=== PATIENT | female | born 1935 | race Caucasian/White ===

== ENCOUNTER 2018-02-16 12:21 | Inpatient (IN) ==
[2018-02-16] MEDS ORDERED: Sod Chloride 0.9% Inj 1,000 ML IV.SIG ONE (12:34)
--- NOTE | 2018-02-16 12:44 | ED ---
HPI General Chief Complaint: Dizziness Stated Complaint: Poss Stroke Symptoms Time Seen by Provider: 02/16/18 12:34 Source: patient Mode of arrival: ambulatory Limitations: no limitations History of Present Illness HPI Narrative: 83-year-old female with PMH of HTN, DM presents to the ED for evaluation of sudden onset dizziness approximately 45 minutes ago while driving her to a doctor's appointment. Patient states she pulled over and had her daughter drive. She states that when she was attempting to get out of the car she had difficulties with walking. She endorses associated blurred vision which resolves when closing one eye. She denies headache, chest pain, palpitations, shortness of breath, abdominal pain, nausea, vomiting, dysuria, weakness of the extremities, facial droop, difficulties with word finding. Patient states that she feels like her symptoms may be due to lack of sleep. She states that her recently had surgery and she has been "up all night with him." The patient's daughter arrived and state that the patient has a history of vertigo, took a meclizine before arrival. She also gave mother a chocolate "in case her blood sugar was low." complaint: dizziness Onset (ago): minute(s) Time: 12:00 Timing: sudden onset Description: lightheadedness and off-balance History of similar episodes: No History of trauma: No Severity: moderate Relieving factors: nothing Exacerbating factors: nothing Associated symptoms: vision changes (blurred with both eyes, resolves with single eye testing) Related Data Allergies Allergy/AdvReac Type Severity Reaction Status Date / Time egg AdvReac Intermediate ABLE TO Unverified 02/11/17 15:16 EAT EGG BEATERS-REG EGGS CAUSE NAUSEA No Known Allergies Uncoded 03/04/10 11:57 Review of Systems ROS: all other systems reviewed are negative [facility] Social History Social History Second Hand Smoke Exposure: No Smoking Status: Never smoker How Often Do You Have a Drink Containing Alcohol: Never Recent Travel in [place] within the Last 8 Weeks: No Recent Out of Country Travel within the Last 8 Weeks: No Immunization History Tetanus Immunization: <5 Years Exam Narrative Exam Narrative: GENERAL: Petite, obese withe female in NAD. SKIN: Focused skin assessment warm/dry. HEAD: Atraumatic. Normocephalic. EYES: Pupils equal and round. No scleral icterus. No injection or drainage. ENT: No nasal bleeding or discharge. Mucous membranes pink and moist. NECK: Trachea midline. No JVD. CARDIOVASCULAR: Regular rate and rhythm. No murmur appreciated. RESPIRATORY: No accessory muscle use. Clear to auscultation. Breath sounds equal bilaterally. GASTROINTESTINAL: Abdomen soft, non-tender, nondistended. Hepatic and splenic margins not palpable. MUSCULOSKELETAL: No obvious deformities. No clubbing. No cyanosis. No edema. NEUROLOGICAL: Awake and alert. CV II-XII grossly intact. Motor grossly within normal limits. No ataxia. Normal speech. PSYCHIATRIC: Appropriate mood and affect; insight and judgment normal. Course Initial Documented Vital Signs Pulse Rate 83 02/16/18 12:27 Respiratory Rate 17 02/16/18 12:27 Blood Pressure 221/86 H 02/16/18 12:27 Pulse Oximetry 97 02/16/18 12:27 Last Documented Vital Signs Temperature 98.8 F 02/16/18 12:30 Pulse Rate 73 02/16/18 14:01 Respiratory Rate 17 02/16/18 14:01 Blood Pressure 202/83 H 02/16/18 14:01 Pulse Oximetry 98 02/16/18 14:01 Medical Decision Making MDM Narrative Medical decision making narrative: 83-year-old female with PMH of HTN, DM presents to the ED for evaluation of sudden onset dizziness with accompanying blurred vision. Onset while driving approximately 45 minutes before arrival. Patient treated with a dose of meclizine with no improvement of symptoms. Vitals reviewed. BP 221/86 on arrival. No focal neuro deficits noted on exam. Patient was administered 1 liter normal saline, 50 mg of hydralazine p.o. EKG rate 81, sinus rhythm, WV interval 189, QRS 94, QTc 399 ms. Normal axis. Old Q waves in V3/V4, [address] No acute [address] changes. Reviewed by Dr. Crook. Cardiac enzymes negative 1. No concerning abnormalities of the CBC, CMP, coags. UA with evidence of UTI. Patient was administered [address] brain: no acute findings. I discussed the findings with the patient and her family. The patient endorses history of chronic urinary incontinence and states "I have been having some pain with urination but I thought this was normal for me." On recheck blurred vision when using both eyes, improved by closing one eye is unresolved. Plan to admit for hypertensive urgency. Patient and her family are agreeable to this plan. I spoke with who agrees to accept the patient to the medicine service. Please see medicine notes for disposition. Medical Screen Exam Complete: Yes Emergency Medical Condition: Yes Differential Diagnosis Differential Diagnosis: HTN versus hypertensive urgency versus ICH versus TIA versus other Lab Data Result diagrams: 02/16/18 12:40 02/16/18 12:40 Lab Results 02/16/18 02/16/18 02/16/18 Range/Units 11:50 12:40 12:40 WBC 9.3 (4.0-11.0) th/mm3 RBC 4.55 (4.00-5.30) mil/mm3 Hgb 13.1 (11.6-15.3) gm/dL Hct 38.7 (35.0-46.0) % MCV 85.0 (80.0-100.0) fL MCH 28.8 (27.0-34.0) pg MCHC 33.8 (32.0-36.0) % RDW 13.5 (11.6-17.2) % Plt Count 269 (150-450) th/mm3 MPV 8.7 (7.0-11.0) fL Neut % (Auto) 64.0 (16.0-70.0) % Lymph % (Auto) 27.0 (9.0-44.0) % [place]onder[place] % (Auto) 6.3 (0.0-8.0) % Eos % (Auto) 2.0 (0.0-4.0) % Baso % (Auto) 0.7 (0.0-2.0) % Neut # (Auto) 5.9 (1.8-7.7) th/mm3 Lymph # (Auto) 2.5 (1.0-4.8) th/mm3 [place] # (Auto) 0.6 (0.0-0.9) th/mm3 Eos # (Auto) 0.2 (0.0-0.4) th/mm3 Baso # (Auto) 0.1 (0.0-0.2) th/mm3 WBC Differential . Differential Comment Auto diff final PT 10.8 (9.8-11.6) sec INR 1.1 Ratio Sodium (136-145) meq/L Potassium (3.5-5.1) meq/L Chloride (98-107) meq/L Carbon Dioxide (21.0-32.0) meq/L Anion Gap (5-15) meq/L BUN (7-18) mg/dL Creatinine (0.50-1.00) mg/dL Estimated GFR (>89) mL/min Random Glucose (74-106) mg/dL Calcium (8.5-10.1) mg/dL Troponin I (0.02-0.05) ng/mL Urine Color Yellow (Yellw/Straw) Urine Clarity Hazy H (Clear) Urine pH 6.0 (5.0-8.5) Ur Specific Sears 1.004 (1.002-1.035) Urine Protein Negative (Neg-Trace) mg/dL Urine Glucose (UA) Negative (Negative) mg/dL Urine Ketones Negative (Negative) mg/dL Urine Occult Blood Small H (Negative) Urine Nitrate Negative (Negative) Urine Bilirubin Negative (Negative) Urine Urobilinogen Less than 2 (Less than 2) mg/dL Ur Leukocyte Esterase Large H (Negative) Urine RBC 1 (0-3) /hpf Urine WBC 18 H (0-5) /hpf Ur Squamous Epith Cells <1 (0-5) /hpf Urine Bacteria Few H (None) /hpf Micro UA Comment Culture indicated Urine Culture Comments Culture indicated 02/16/18 Range/Units 12:40 WBC (4.0-11.0) th/mm3 RBC (4.00-5.30) mil/mm3 Hgb (11.6-15.3) gm/dL Hct (35.0-46.0) % MCV (80.0-100.0) fL MCH (27.0-34.0) pg MCHC (32.0-36.0) % RDW (11.6-17.2) % Plt Count (150-450) th/mm3 MPV (7.0-11.0) fL Neut % (Auto) (16.0-70.0) % Lymph % (Auto) (9.0-44.0) % Pondera % (Auto) (0.0-8.0) % Eos % (Auto) (0.0-4.0) % Baso % (Auto) (0.0-2.0) % Neut # (Auto) (1.8-7.7) th/mm3 Lymph # (Auto) (1.0-4.8) th/mm3 [place] # (Auto) (0.0-0.9) th/mm3 Eos # (Auto) (0.0-0.4) th/mm3 Baso # (Auto) (0.0-0.2) th/mm3 WBC Differential Differential Comment PT (9.8-11.6) sec INR Ratio Sodium 138 (136-145) meq/L Potassium 4.1 (3.5-5.1) meq/L Chloride 101 (98-107) meq/L Carbon Dioxide 27.2 (21.0-32.0) meq/L Anion Gap 10 (5-15) meq/L BUN 15 (7-18) mg/dL Creatinine 0.81 (0.50-1.00) mg/dL Estimated GFR 68 L (>89) mL/min Random Glucose 216 H (74-106) mg/dL Calcium 9.0 (8.5-10.1) mg/dL Troponin I Less than 0.02 L (0.02-0.05) ng/mL Urine Color (Yellw/Straw) Urine Clarity (Clear) Urine pH (5.0-8.5) Ur Specific Sears (1.002-1.035) Urine Protein (Neg-Trace) mg/dL Urine Glucose (UA) (Negative) mg/dL Urine Ketones (Negative) mg/dL Urine Occult Blood (Negative) Urine Nitrate (Negative) Urine Bilirubin (Negative) Urine Urobilinogen (Less than 2) mg/dL Ur Leukocyte Esterase (Negative) Urine RBC (0-3) /hpf Urine WBC (0-5) /hpf Ur Squamous Epith Cells (0-5) /hpf Urine Bacteria (None) /hpf Micro UA Comment Urine Culture Comments Imaging Data Radiologist's impression: Head CT 02/16/18 12:34 CONCLUSION: No acute intracranial abnormality is identified. . Discharge Plan Discharge Disposition Patient Disposition: 30 Still Patient Discharge Details Diagnosis: Hypertensive urgency, Urinary tract infection Physicians Team ED Provider: Evans Crook ED Midlevel Provider: Chaya Coronado Primary Care Provider: Josh Ardon Attending Provider: Alfredo Ballard Discharge Interventions Interventions: Vital Signs Last Done: 02/16/18 12:30 Status ED Status: Admitted Patient
[2018-02-16 13:03] LABS: Baso # (Auto) 0.1 th/mm3 (0.0-0.2); Baso % (Auto) 0.7 % (0.0-2.0); Eos # (Auto) 0.2 th/mm3 (0.0-0.4); Hematocrit 38.7 % (35.0-46.0); Hemoglobin 13.1 gm/dL (11.6-15.3); Lymph # (Auto) 2.5 th/mm3 (1.0-4.8); Mean Corpuscular HGB Conc 33.8 % (32.0-36.0); Mean Corpuscular Hemoglobin 28.8 pg (27.0-34.0); Mean Platelet Volume 8.7 fL (7.0-11.0); Mono # (Auto) 0.6 th/mm3 (0.0-0.9); Mono % (Auto) 6.3 % (0.0-8.0); Neut # (Auto) 5.9 th/mm3 (1.8-7.7); Platelet Count 269 th/mm3 (150-450); Red Blood Count 4.55 mil/mm3 (4.00-5.30); Red Cell Distribution Width 13.5 % (11.6-17.2); White Blood Count 9.3 th/mm3 (4.0-11.0)
[2018-02-16 13:08] LABS: Bacteria,Urine Few /hpf; Bilirubin,Urine Negative (Negative); Clarity,Urine Hazy (Clear); Color,Urine Yellow (Yellw/Straw); Glucose,Urine (UA) Negative (Negative); Leukocyte Esterase,Urine Large (Negative); Nitrite,Urine Negative (Negative); Specific Gravity,Urine 1.004 (1.002-1.035); Squamous Epithelial Cell,Urine <1 /hpf (0-5)
[2018-02-16 13:11] LABS: INR 1.1 Ratio; Prothrombin Time 10.8 sec (9.8-11.6)
[2018-02-16 13:18] LABS: Anion Gap 10 meq/L (5-15); Blood Urea Nitrogen 15 mg/dL (7-18); Carbon Dioxide 27.2 meq/L (21.0-32.0); Chloride 101 meq/L (98-107); Glomerular Filtration Rate 68 mL/min (>89); Glucose,Random 216 mg/dL (74-106); Potassium 4.1 meq/L (3.5-5.1); Sodium 138 meq/L (136-145)
--- NOTE | 2018-02-16 13:58 | CT ---
EXAM DATE: 02/16/2018 1:46 PM EDT AGE/SEX: 83 years / Female INDICATIONS: Dizziness today. CLINICAL DATA: This is the patient's initial encounter. Patient reports that signs and symptoms have been present for 1 day and indicates a pain score of 0/10. MEDICAL/SURGICAL HISTORY: None. None. RADIATION DOSE: 36.84 CTDI (mGy) COMPARISON: No prior exams available for comparison. TECHNIQUE: CT of the head without contrast. Using automated exposure control and adjustment of the mA and/or kV according to patient size, radiation dose was kept as low as reasonably achievable to ob tain optimal diagnostic quality images. DICOM format image data is available electronically for revi ew and comparison. FINDINGS: Cerebrum: There is mild generalized atrophy and ventricles are normal given the degree of atrophy. M ild periventricular white matter change is present. No midline shift, mass lesion, hemorrhage or acu te infarction. No extraaxial fluid collections are seen. Posterior Fossa: The cerebellum and brainstem demonstrate no acute abnormality. The 4th ventricle is midline. The cerebellopontine angle is within normal limits. Extracranial: The visualized sinuses are clear. Skull: The calvaria is intact. No skull fracture. CONCLUSION: No acute intracranial abnormality is identified. . Electronically signed by: Klever Root MD 02/16/2018 1:57 PM EDT
[2018-02-16] MEDS ORDERED: hydrALAZINE 50 MG Tablet PO ONE (14:15)
[2018-02-16] MEDS ORDERED: Bisacodyl 10 MG Supp RECTAL PRN (14:59)
[2018-02-16] MEDS ORDERED: Acetaminophen 325 MG Tablet PO PRN (15:01)
[2018-02-16] MEDS ORDERED: Dextrose 50% in Water 50 ML Vial IV.PUSH PRN (15:10)
[2018-02-16] MEDS: Heparin - SQ 10,000 UNITS/ML Vial SQ SCH (16:20)
--- NOTE | 2018-02-16 16:54 | US ---
EXAM DATE: 02/16/2018 4:14 PM EDT AGE/SEX: 83 years / Female INDICATIONS: Syncope. CLINICAL DATA: This is the patient's initial encounter. Patient reports that signs and symptoms have been present for 1 day and indicates a pain score of 0/10. MEDICAL/SURGICAL HISTORY: . Syncope. None. COMPARISON: No prior exams available for comparison. VELOCITY PARAMETERS: ICA/CCA Ratio: Right 1.3 , Left 1.8 ICA: Right 101 cm/sec, Left 171 cm/sec CCA: Right 77.6 cm/sec, Left 95.1 cm/sec ECA: Right 63.5 cm/sec, Left 170 cm/sec Vertebral: Right 167 cm/sec antegrade, Left 76.3 cm/sec antegrade FINDINGS: Right Carotid: No significant plaque is visualized.The waveforms are within normal limits. Left Carotid: No significant plaque is visualized. The waveforms are within normal limits. Other: None. CONCLUSION: 1. Right Internal Carotid Artery: No significant stenosis or atherosclerotic plaque is visualized. 2. Left Internal Carotid Artery: No significant atherosclerotic disease or stenosis is identified. H owever, velocity measurement suggests between 50-69% stenosis. Electronically signed by: Klever Root MD 02/16/2018 4:53 PM EDT
[2018-02-16] MEDS ORDERED: LORazepam 0.5 MG Tablet PO ONE (17:04)
--- NOTE | 2018-02-16 17:04 | P.HP ---
History of Present Illness Service: Hospitalist Primary Care Physician: Josh Ardon MD Chief Complaint: Double vision History of Present Illness: This is an 83-year-old female with a past medical history significant for hypertension, hypothyroidism and diabetes who presents to [facility] ED with complaints of sudden onset of "dizziness" which patient describes as double /blurry vision. Patient states she has episodes of "vertigo" which she gets 2 times a year and reports that today's symptoms were similar. Patient states that she woke up in her normal state of health this morning but later in the day when she got in the car to drive she experienced a sudden onset of blurry vision. When she got out the car to let her daughter drive, she had difficulty walking. She denies any associated headache, palpitations, nausea, vomiting, chest pain, shortness of breath or abdominal pain. Daughter who was with her at the time states that the her left eyelid was droopy. She denies any slurred speech, difficulties with word finding or associated weakness. She does state that she had some numbness in the left arm but reports that she gets this from time to time with certain positioning of her arm or head and has a history of cervical stenosis. Patient took one of her meclizine but did not get any benefit. Her daughter was also concerned that maybe she was having hypoglycemic episode and gave her a small Snickers which also did not help. In the ED, her BP was dated 221/86. CT of the head was obtained which showed no acute intracranial abnormality. The white count was within normal limits and hemoglobin hematocrit were normal. Chemistry panel reveals sodium 138, potassium 4.1, creatinine 0.81, glucose 216. She had a troponin level 0.02. EKG revealed normal sinus rhythm and no acute ST changes. UA was not indicative of UTI with large leukocytes, 18 white blood cells and few bacteria and she was given a dose of Ceftriaxone in the ED. Inpatient Certification: I certify that the inpatient services were ordered in accordance with Medicare regulations governing the order. This includes certification that hospital inpatient services are reasonable and necessary and in the case of services not specified as inpatient-only under 42 CFR 419.22(n), that they are appropriately provided as inpatient services in accordance to with the 2-midnight benchmark under 43 CFR 412.3(e) Estimated Total Length of Stay (Days): 3 Plans for Post Hospital Care: Not yet determined Review of Systems All other systems reviewed negative except as stated in HPI PMFSH - History History Provided By: Patient, Family Member - Medical History Medical History: Medical History (Last Updated 02/16/18 @ 16:49 by Tegan Carrera) Cervical stenosis of spine Diabetes mellitus Hypertension Prolapsed bladder Vertigo - Surgical History Surgical History: Surgical History (Last Updated 02/16/18 @ 16:49 by Tegan Carrera) H/O tubal ligation History of cholecystectomy History of tonsillectomy - Family History Family History: Family History (Last Updated 02/16/18 @ 16:49 by Tegan Carrera) Other Diabetes mellitus - Tobacco History Second Hand Smoke Exposure: No Tobacco Use In Past 30 Days: No Smoking Status: Never smoker - Alcohol History How Often Do You Have a Drink Containing Alcohol: Never - Substance Use History Substance History: No History of Abuse - Travel History Recent Travel in the [place] Within the Last 8 Weeks: No Recent Travel Out of the Country Within the Last 8 Weeks: No - Immunization History Tetanus Immunization: <5 Years Medications and Allergies Active Medications: Active Medications Acetaminophen (Tylenol) 650 mg PO Q4H PRN PRN Reason: Temp > 100.4 Al Hydroxide/Mg Hydroxide (Milk Of Magnesia Liq) 30 ml PO Q12H PRN PRN Reason: Mild Constipation Aspirin (Aspirin Chew) 81 mg PO DAILY [facility] Last Admin: 02/16/18 16:20 Dose: 81 mg Bisacodyl (Dulcolax Supp) 10 mg RECTAL DAILY PRN PRN Reason: SEVERE CONSITIPATION Clonidine HCl (Catapres) 0.1 mg PO Q6H PRN PRN Reason: HYPERTENSION Dextrose (D50w Vial) 50 ml IV.PUSH UNSCH PRN PRN Reason: per Hypoglycemic Protocol Glucagon (Glucagon Inj) 1 mg OTHER UNSCH PRN PRN Reason: per Hypoglycemic Protocol Heparin Sodium (Porcine) (Heparin Inj) 5,000 units SQ Q12H [facility] Last Admin: 02/16/18 16:20 Dose: 5,000 units Hydralazine HCl (Apresoline) 50 mg PO TID JANAK Ceftriaxone Sodium 1,000 mg/ (Sodium Chloride) 100 mls @ 200 mls/hr IV.SIG Q24H JANAK Lactulose (Lactulose Liq) 30 ml PO DAILY PRN PRN Reason: SEVERE CONSITIPATION Ondansetron HCl (Zofran Inj) 4 mg IV.PUSH Q6H PRN PRN Reason: NAUSEA OR VOMITING Pravastatin Sodium (Pravachol) 40 mg PO HS JANAK Senna/Docusate Sodium (Luciana-Colace) 1 tab PO BID JANAK Sennosides (Senokot) 17.2 mg PO Q12H PRN PRN Reason: Moderate Constipation Sodium Chloride (Ns Flush) 2 ml IV.FLUSH PRN PRN PRN Reason: FLUSH AFTER USING IV ACCESS Allergies Allergy/AdvReac Type Severity Reaction Status Date / Time egg AdvReac Intermediate ABLE TO Unverified 02/11/17 15:16 EAT EGG BEATERS-REG EGGS CAUSE NAUSEA No Known Allergies Uncoded 03/04/10 11:57 Home Medications Medication Instructions Recorded Confirmed Type amlodipine 5 mg PO DAILY 02/16/18 02/16/18 History aspirin [Abigail Chewable Aspirin] 81 mg PO DAILY 02/16/18 02/16/18 History calcium carbonate [Calcium 600] 600 mg PO BID 02/16/18 02/16/18 History coenzyme Q10 [Co Q-10] 10 mg PO TID 02/16/18 02/16/18 History folic acid 0.8 mg PO DAILY 02/16/18 02/16/18 History garlic 500 mg PO DAILY 02/16/18 02/16/18 History glipizide 5 mg PO DAILY 02/16/18 02/16/18 History levothyroxine 150 mcg PO DAILY 02/16/18 02/16/18 History linagliptin [Tradjenta] 5 mg PO DAILY 02/16/18 02/16/18 History losartan 100 mg PO DAILY 02/16/18 02/16/18 History omega 2-ltr-zns-fish oil [Fish Oil] 1,000 mg PO DAILY 02/16/18 02/16/18 History omeprazole 20 mg PO DAILY 02/16/18 02/16/18 History vit D3-folic [id number]-[id number] 2,000 unit PO DAILY 02/16/18 02/16/18 History [Folgard] Exam Vital signs: Vital Signs 02/16/18 12:27 02/16/18 12:30 02/16/18 14:01 Temperature 98.8 F Pulse Rate 83 95 H 73 Respiratory Rate 17 17 17 Blood Pressure 221/86 H 186/81 H 202/83 H Pulse Oximetry 97 98 98 02/16/18 15:33 02/16/18 16:21 Temperature Pulse Rate 87 89 Respiratory Rate 17 17 Blood Pressure 182/81 H 183/74 H Pulse Oximetry 97 Intake & Output 02/15/18 02/16/18 02/16/18 18:59 06:59 18:59 Weight 74.843 kg Narrative: GENERAL: WDWN obese female, INAD. Awake and alert. Daughter is at the bedside. SKIN: Warm and dry. No rash. HEAD: Atraumatic. Normocephalic. EYES: Pupils equal and round. No scleral icterus. No injection or drainage. + Slight left eyelid ptosis. ENT: No nasal bleeding or discharge. Mucous membranes pink and moist. NECK: Trachea midline. CARDIOVASCULAR: Regular rate and rhythm. RESPIRATORY: No accessory muscle use. Clear to auscultation. Breath sounds equal bilaterally. GASTROINTESTINAL: Abdomen soft, non-tender, nondistended. Hepatic and splenic margins not palpable. MUSCULOSKELETAL: Extremities without clubbing, cyanosis, or edema. No obvious deformities. NEUROLOGICAL: Awake and alert. No obvious cranial nerve deficits. Motor grossly within normal limits. Normal speech. PSYCHIATRIC: Appropriate mood and affect; insight and judgment normal. Results - Labs CBC & Chem 7: 02/16/18 12:40 02/16/18 12:40 Labs: Laboratory Results - last 24 hr 02/16/18 02/16/18 02/16/18 11:50 12:40 12:40 WBC 9.3 RBC 4.55 Hgb 13.1 Hct 38.7 MCV 85.0 MCH 28.8 MCHC 33.8 RDW 13.5 Plt Count 269 MPV 8.7 Neut % (Auto) 64.0 Lymph % (Auto) 27.0 Yancey % (Auto) 6.3 Eos % (Auto) 2.0 Baso % (Auto) 0.7 Neut # (Auto) 5.9 Lymph # (Auto) 2.5 Yancey # (Auto) 0.6 Eos # (Auto) 0.2 Baso # (Auto) 0.1 WBC Differential . Differential Comment Auto diff final PT 10.8 INR 1.1 Sodium Potassium Chloride Carbon Dioxide Anion Gap BUN Creatinine Estimated GFR Random Glucose Calcium Troponin I Urine Color Yellow Urine Clarity Hazy H Urine pH 6.0 Ur Specific Shelby 1.004 Urine Protein Negative Urine Glucose (UA) Negative Urine Ketones Negative Urine Occult Blood Small H Urine Nitrate Negative Urine Bilirubin Negative Urine Urobilinogen Less than 2 Ur Leukocyte Esterase Large H Urine RBC 1 Urine WBC 18 H Ur Squamous Epith Cells <1 Urine Bacteria Few H Micro UA Comment Culture indicated Urine Culture Comments Culture indicated 02/16/18 12:40 WBC RBC Hgb Hct MCV MCH MCHC RDW Plt Count MPV Neut % (Auto) Lymph % (Auto) Yancey % (Auto) Eos % (Auto) Baso % (Auto) Neut # (Auto) Lymph # (Auto) Yancey # (Auto) Eos # (Auto) Baso # (Auto) WBC Differential Differential Comment PT INR Sodium 138 Potassium 4.1 Chloride 101 Carbon Dioxide 27.2 Anion Gap 10 BUN 15 Creatinine 0.81 Estimated GFR 68 L Random Glucose 216 H Calcium 9.0 Troponin I Less than 0.02 L Urine Color Urine Clarity Urine pH Ur Specific Shelby Urine Protein Urine Glucose (UA) Urine Ketones Urine Occult Blood Urine Nitrate Urine Bilirubin Urine Urobilinogen Ur Leukocyte Esterase Urine RBC Urine WBC Ur Squamous Epith Cells Urine Bacteria Micro UA Comment Urine Culture Comments - Imaging Impressions Head CT 02/16/18 12:34 CONCLUSION: No acute intracranial abnormality is identified. . Caprini VTE Risk Assessment Caprini VTE Risk Assessment: Moderate/High Risk (score >= 2) Caprini Risk Assessment Model: Point Value = 1 Point Value = 2 Point Value = 3 Point Value = 5 Age 41-60 Minor surgery BMI > 25 kg/m2 Swollen legs Varicose veins or History of unexplained or recurrent spontaneous Oral contraceptives or hormone replacement Sepsis (< 1 month) Serious lung disease, including pneumonia (< 1 month) Abnormal pulmonary function Acute myocardial infarction Congestive heart failure (< 1 month) History of inflammatory bowel disease Medical patient at bed rest Age 61-74 Arthroscopic surgery Major open surgery (> 45 min) Laparoscopic surgery (> 45 min) Malignancy Confined to bed (> 72 hours) Immobilizing plaster cast Central venous access Age >= 75 History of VTE Family history of VTE Factor V Leiden Prothrombin [id number] Lupus anticoagulant Anticardiolipin antibodies Elevated serum homocysteine Heparin-induced thrombocytopenia Other congenital or acquired thrombophilia Stroke (< 1 month) Elective arthroplasty Hip, pelvis, or leg fracture Acute spinal cord injury (< 1 month) Prophylaxis Regimen: Total Risk Factor Score Risk Level Prophylaxis Regimen 0-1 Low Early ambulation 2 Moderate Order ONE of the following: *Sequential Compression Device (SCD) *Heparin 5000 units SQ BID 3-4 Higher Order ONE of the following medications: *Heparin 5000 units SQ TID *Enoxaparin/Lovenox 40 mg SQ daily (WT < 150 kg, CrCl > 30 mL/min) *Enoxaparin/Lovenox 30 mg SQ daily (WT < 150 kg, CrCl > 10-29 mL/min) *Enoxaparin/Lovenox 30 mg SQ BID (WT < 150 kg, CrCl > 30 mL/min) AND/OR *Sequential Compression Device (SCD) 5 or more Highest Order ONE of the following medications: *Heparin 5000 units SQ TID (Preferred with Epidurals) *Enoxaparin/Lovenox 40 mg SQ daily (WT < 150 kg, CrCl > 30 mL/min) *Enoxaparin/Lovenox 30 mg SQ daily (WT < 150 kg, CrCl > 10-29 mL/min) *Enoxaparin/Lovenox 30 mg SQ BID (WT < 150 kg, CrCl > 30 mL/min) AND *Sequential Compression Device (SCD) Assessment and Plan - Plan 83-year-old female with a past medical history significant for hypertension, hypothyroidism and diabetes who presents to [facility] ED with complaints of sudden onset of "dizziness" which patient describes as double/blurry vision. Sudden onset of blurry/double vision and gait instability R/O CVA -Consult Neurology, appreciate assistance -Consult stroke navigator -Neuro checks -Monitor on cardiac telemetry -Serial cardiac enzymes -Obtain 2D echocardiogram -MRI and MRI of the brain ordered -Carotid Doppler studies ordered -ASA daily -Obtain lipid profile and hemoglobin A1c -PT/OT eval/tx Hypertensive urgency, likely contributing to above BP 221/86 -start on Hydralazine 50mg TID -resume patients home antihypertensive meds -clonidine prn with parameters -monitor BP and adjust treatment accordingly UTI -Patient given IV ceftriaxone in the ED, continue -Follow-up on urine culture results Diabetes -Obtain hemoglobin A1c -Accu-Cheks and insulin sliding scale -Hold home antidiabetic medications for now Hypothyroidism -Obtain TSH level -Resume home dose of levothyroxine DVT prophylaxis -Heparin sq Code Status: FULL Discussed Condition With: patient, daughter, Dr. Ballard, nursing staff
[2018-02-16 18:31] LABS: Creatine Kinase 68 U/L (26-192)
--- NOTE | 2018-02-16 19:12 | MR ---
EXAM DATE: 02/16/2018 6:48 PM EDT AGE/SEX: 83 years / Female INDICATIONS: CVA. Vertigo. CLINICAL DATA: This is the patient's initial encounter. Patient reports that signs and symptoms have been present for 2 days and indicates a pain score of 0/10. MEDICAL/SURGICAL HISTORY: Diabetes mellitus type II. Hypertension. Tonsillectomy. Tubal ligat ion. Cholecystectomy. COMPARISON: . TECHNIQUE: Multiplanar, multisequence examination of the brain was performed without contrast. FINDINGS: Cerebrum: The ventricles are normal for age. No evidence of midline shift, mass lesion, hemorrhage or acute infarction. No extraaxial fluid collections are seen. The pituitary gland and suprasellar cistern are normal in configuration. White Matter: No significant signal abnormalities are seen in the white matter. Posterior Fossa: The cerebellum and brainstem are intact. The 4th ventricle is midline. The cerebel lopontine angle is unremarkable. The cerebellar tonsils are normal in position. Diffusion Imaging: No focal areas of restricted diffusion are seen. No evidence of acute infarction . Extracranial: The visualized portions of the orbits and paranasal sinuses are unremarkable. CONCLUSION: 1. Negative noncontrast MRI of the brain. Electronically signed by: Dhaval Madrid MD 02/16/2018 7:11 PM EDT
--- NOTE | 2018-02-16 19:13 | MR ---
EXAM DATE: 02/16/2018 6:57 PM EDT AGE/SEX: 83 years / Female INDICATIONS: CVA. Vertigo. CLINICAL DATA: This is the patient's initial encounter. Patient reports that signs and symptoms have been present for 1 day and indicates a pain score of 0/10. MEDICAL/SURGICAL HISTORY: Hypertension. Diabetes mellitus type II. Cholecystectomy. Tonsillec divine. Tubal ligation. COMPARISON: [facility] [place], MR HEAD W/O CONTRAST, 02/16/2018. . TECHNIQUE: 3D [id number] MRA was performed. Source images, multiplanar STS MIP, and 3D volum e MIP reconstructions were reviewed. FINDINGS: There is excellent visualization of the major intracranial arteries out to the second-order branch ve ssels. There is no evidence for aneurysm, vessel truncation or stenosis, and no evidence for vascula r malformation. Flow seen in the anterior communicating artery and in the right PCOM. CONCLUSION: 1. Negative MRA of the [place]. Electronically signed by: Dhaval Madrid MD 02/16/2018 7:12 PM EDT
[2018-02-16] MEDS: Senna/Docusate Sodium 8.6/50 MG Tablet PO SCH (21:20)
[2018-02-16] MEDS: hydrALAZINE 50 MG Tablet PO SCH (21:23)
[2018-02-16 22:39] LABS: Creatine Kinase 115 U/L (26-192)
[2018-02-16] MEDS: Insulin NovoLOG Aspart Correctional Sugar Inj SQ SCH (23:32)
[2018-02-17] MEDS: Heparin - SQ 10,000 UNITS/ML Vial SQ SCH ×2 (04:02→17:50)
[2018-02-17] MEDS: Levothyroxine 150 MCG Tablet PO SCH (05:32)
[2018-02-17 07:44] LABS: Baso # (Auto) 0.1 th/mm3 (0.0-0.2); Baso % (Auto) 0.9 % (0.0-2.0); Eos # (Auto) 0.2 th/mm3 (0.0-0.4); Eos % (Auto) 2.8 % (0.0-4.0); Hematocrit 37.3 % (35.0-46.0); Hemoglobin 12.5 gm/dL (11.6-15.3); Lymph # (Auto) 2.4 th/mm3 (1.0-4.8); Lymph % (Auto) 27.6 % (9.0-44.0); Mean Corpuscular HGB Conc 33.5 % (32.0-36.0); Mean Corpuscular Hemoglobin 28.8 pg (27.0-34.0); Mean Corpuscular Volume 85.9 fL (80.0-100.0); Mean Platelet Volume 8.6 fL (7.0-11.0); Mono # (Auto) 0.6 th/mm3 (0.0-0.9); Mono % (Auto) 6.5 % (0.0-8.0); Neut # (Auto) 5.3 th/mm3 (1.8-7.7); Neut % (Auto) 62.2 % (16.0-70.0); Platelet Count 278 th/mm3 (150-450); Red Blood Count 4.34 mil/mm3 (4.00-5.30); Red Cell Distribution Width 13.4 % (11.6-17.2); White Blood Count 8.6 th/mm3 (4.0-11.0)
[2018-02-17 08:04] LABS: Alanine Aminotransferase 26 U/L (10-53); Albumin 3.4 g/dL (3.4-5.0); Anion Gap 10 meq/L (5-15); Aspartate Aminotransferase 19 U/L (15-37); Blood Urea Nitrogen 14 mg/dL (7-18); Calcium 8.4 mg/dL (8.5-10.1); Carbon Dioxide 25.2 meq/L (21.0-32.0); Chloride 105 meq/L (98-107); Cholesterol 230 mg/dL (120-200); Glomerular Filtration Rate 75 mL/min (>89); Glucose,Random 196 mg/dL (74-106); Potassium 3.9 meq/L (3.5-5.1); Sodium 140 meq/L (136-145)
[2018-02-17 08:13] LABS: Alkaline Phosphatase 106 U/L (45-117); Chol/HDL Ratio 5.54 Ratio; Free T4 (Free Thyroxine) 1.12 ng/dL (0.76-1.46); HDL Cholesterol 41.5 mg/dL (40.0-60.0); LDL Cholesterol,Calculated 129 mg/dL (0-99); Phosphorus 3.3 mg/dL (2.5-4.9); Total Protein 7.2 g/dL (6.4-8.2); Triglycerides 296 mg/dL (42-150)
[2018-02-17] MEDS ORDERED: amLODIPine 5 MG Tablet PO SCH (09:00)
[2018-02-17] MEDS ORDERED: LEVOTHYROXINE 150 MCG PO SCH (09:00)
[2018-02-17] MEDS: Senna/Docusate Sodium 8.6/50 MG Tablet PO SCH ×2 (09:34→20:20)
[2018-02-17] MEDS: Insulin NovoLOG Aspart Correctional Sugar Inj SQ SCH ×4 (09:34→20:25)
[2018-02-17] MEDS: hydrALAZINE 50 MG Tablet PO SCH (09:34)
[2018-02-17] MEDS: Pantoprazole Sodium 20 MG DR Tablet PO SCH (09:34)
--- NOTE | 2018-02-17 09:39 | P.CONNEU ---
History of Present Illness Service: Neurology Primary Care Provider: Josh Ardon MD Chief Complaint: Double vision History of Present Illness: 83-year-old female admitted for acute onset of dizziness. Had similar episodes occur in the past averages 1-2/year. Neurology consulted for vision changes. Began having dizziness when she is driving and noticed things moving side to side in her visual field. No headache no focal weakness. Had this type of dizziness before feels better now. Takes aspirin daily. She also has had numbness in her left arm Review of Systems All other systems reviewed negative except as stated in [facility] - History History Provided By: Patient, Family Member - Medical History Medical History: Medical History (Last Reviewed 02/17/18 @ 13:32 by Shaila Leone) Cervical stenosis of spine Diabetes mellitus Hypertension Prolapsed bladder Vertigo - Surgical History Surgical History: Surgical History (Last Reviewed 02/17/18 @ 13:32 by Shaila Leone) H/O tubal ligation History of cholecystectomy History of tonsillectomy - Family History Family History: Family History (Last Updated 02/16/18 @ 16:49 by Tegan Carrera) Other Diabetes mellitus - Tobacco History Second Hand Smoke Exposure: No Tobacco Use In Past 30 Days: No Smoking Status: Never smoker - Alcohol History How Often Do You Have a Drink Containing Alcohol: Never - Substance Use History Substance History: No History of Abuse - Travel History Recent Travel in the [place] Within the Last 8 Weeks: No Recent Travel Out of the Country Within the Last 8 Weeks: No - Immunization History Tetanus Immunization: <5 Years Medications and Allergies Active Medications: Active Medications Acetaminophen (Tylenol) 650 mg PO Q4H PRN PRN Reason: Temp > 100.4 Al Hydroxide/Mg Hydroxide (Milk Of [place] Liq) 30 ml PO Q12H PRN PRN Reason: Mild Constipation Amlodipine Besylate (Norvasc) 5 mg PO DAILY JANAK Aspirin (Aspirin Chew) 81 mg PO DAILY JANAK Last Admin: 02/16/18 16:20 Dose: 81 mg Bisacodyl (Dulcolax Supp) 10 mg RECTAL DAILY PRN PRN Reason: SEVERE CONSITIPATION Clonidine HCl (Catapres) 0.1 mg PO Q6H PRN PRN Reason: HYPERTENSION Dextrose (D50w Vial) 50 ml IV.PUSH UNSCH PRN PRN Reason: per Hypoglycemic Protocol Glucagon (Glucagon Inj) 1 mg OTHER UNSCH PRN PRN Reason: per Hypoglycemic Protocol Heparin Sodium (Porcine) (Heparin Inj) 5,000 units SQ Q12H [facility] Last Admin: 02/17/18 04:02 Dose: 5,000 units Hydralazine HCl (Apresoline) 50 mg PO TID [facility] Last Admin: 02/16/18 21:23 Dose: 50 mg Ceftriaxone Sodium 1,000 mg/ (Sodium Chloride) 100 mls @ 200 mls/hr IV.SIG Q24H [facility] Insulin Aspart (Novolog Insulin Correctional Sugar Inj) 0 unit SQ ACHS [facility]; Protocol Last Admin: 02/16/18 23:32 Dose: 5 unit Lactulose (Lactulose Liq) 30 ml PO DAILY PRN PRN Reason: SEVERE CONSITIPATION Levothyroxine Sodium (Synthroid) 150 mcg PO DAILY@0600 [facility] Last Admin: 02/17/18 05:32 Dose: 150 mcg Losartan Potassium (Cozaar) 100 mg PO DAILY [facility] Ondansetron HCl (Zofran Inj) 4 mg IV.PUSH Q6H PRN PRN Reason: NAUSEA OR VOMITING Pantoprazole Sodium (Protonix) 20 mg PO DAILY [facility] Pravastatin Sodium (Pravachol) 40 mg PO HS [facility] Last Admin: 02/16/18 21:23 Dose: 40 mg Senna/Docusate Sodium (Luciana-Colace) 1 tab PO BID [facility] Last Admin: 02/16/18 21:20 Dose: Not Given Sennosides (Senokot) 17.2 mg PO Q12H PRN PRN Reason: Moderate Constipation Sodium Chloride (Ns Flush) 2 ml IV.FLUSH PRN PRN PRN Reason: FLUSH AFTER USING IV ACCESS Allergies Allergy/AdvReac Type Severity Reaction Status Date / Time egg AdvReac Intermediate ABLE TO Unverified 02/11/17 15:16 EAT EGG BEATERS-REG EGGS CAUSE NAUSEA No Known Allergies Uncoded 03/04/10 11:57 Home Medications Medication Instructions Recorded Confirmed Type amlodipine 5 mg PO DAILY 02/16/18 02/16/18 History aspirin [Abigail Chewable Aspirin] 81 mg PO DAILY 02/16/18 02/16/18 History calcium carbonate [Calcium 600] 600 mg PO BID 02/16/18 02/16/18 History coenzyme Q10 [Co Q-10] 10 mg PO TID 02/16/18 02/16/18 History folic acid 0.8 mg PO DAILY 02/16/18 02/16/18 History garlic 500 mg PO DAILY 02/16/18 02/16/18 History glipizide 5 mg PO DAILY 02/16/18 02/16/18 History levothyroxine 150 mcg PO DAILY 02/16/18 02/16/18 History linagliptin [Tradjenta] 5 mg PO DAILY 02/16/18 02/16/18 History losartan 100 mg PO DAILY 02/16/18 02/16/18 History omega [id number] oil [Fish Oil] 1,000 mg PO DAILY 02/16/18 02/16/18 History omeprazole 20 mg PO DAILY 02/16/18 02/16/18 History vit D3-folic [id number] 2,000 unit PO DAILY 02/16/18 02/16/18 History [Folgard] Exam Vital signs: Vital Signs 02/16/18 12:27 02/16/18 12:30 02/16/18 14:01 Temperature 98.8 F Pulse Rate 83 95 H 73 Respiratory Rate 17 17 17 Blood Pressure 221/86 H 186/81 H 202/83 H Pulse Oximetry 97 98 98 02/16/18 15:10 02/16/18 15:33 02/16/18 16:21 Temperature Pulse Rate 79 87 89 Respiratory Rate 17 17 Blood Pressure 182/81 H 183/74 H Pulse Oximetry 97 02/16/18 18:15 02/16/18 20:00 02/17/18 00:00 Temperature 97.7 F 97.7 F Pulse Rate 78 71 77 Respiratory Rate 17 18 18 Blood Pressure 175/79 H 182/76 H 124/57 L Pulse Oximetry 98 96 94 L 02/17/18 04:00 Temperature 97.6 F Pulse Rate 71 Respiratory Rate 18 Blood Pressure 171/79 H Pulse Oximetry 96 Intake & Output 02/16/18 02/17/18 02/17/18 18:59 06:59 18:59 Intake Total 120 / 120 Balance 120 / 120 Weight 74.843 kg 83.1 kg Intake: Oral 120 / 120 Other: # Incontinent Voids 5 Date of Last Bowel Movement 02/16/18 # Bowel Movements 0 Weight On Admission 81.1 kg Narrative: GENERAL: in NAD. SKIN: Focused skin assessment warm/dry. HEAD: Atraumatic. Normocephalic. EYES: Pupils equal and round. No scleral icterus. No injection or drainage. ENT: No nasal bleeding or discharge. Mucous membranes pink and moist. NECK: Trachea midline. No JVD. CARDIOVASCULAR: Regular rate and rhythm. RESPIRATORY: No accessory muscle use. GASTROINTESTINAL: Abdomen soft, non-tender, nondistended. MUSCULOSKELETAL: No obvious deformities. No clubbing. No cyanosis. No edema. NEUROLOGICAL: Awake and alert. CV II-XII grossly intact. Head there is test positive on the right however patient is limited mobility at the neck due to arthritis thereby Phylicia-Hallpike not perform neither Tiffany. Slight nystagmus right upgaze. Motor grossly within normal limits. No ataxia. Normal speech. PSYCHIATRIC: Appropriate mood and affect; insight and judgment normal. - Constitutional no acute distress - Routine HEENT Exam Head: Present: normocephalic Results - Labs CBC & Chem 7: 02/17/18 07:30 02/17/18 07:30 Labs: Laboratory Results - last 24 hr 02/16/18 02/16/18 02/16/18 11:50 12:40 12:40 WBC 9.3 RBC 4.55 Hgb 13.1 Hct 38.7 MCV 85.0 MCH 28.8 MCHC 33.8 RDW 13.5 Plt Count 269 MPV 8.7 Neut % (Auto) 64.0 Lymph % (Auto) 27.0 [place] % (Auto) 6.3 Eos % (Auto) 2.0 Baso % (Auto) 0.7 Neut # (Auto) 5.9 Lymph # (Auto) 2.5 [place] # (Auto) 0.6 Eos # (Auto) 0.2 Baso # (Auto) 0.1 WBC Differential . Differential Comment Auto diff final PT 10.8 INR 1.1 Sodium Potassium Chloride Carbon Dioxide Anion Gap BUN Creatinine Estimated GFR POC Glucose Random Glucose Calcium Phosphorus Magnesium Total Bilirubin AST ALT Alkaline Phosphatase Total Creatine Kinase Troponin I Total Protein Albumin Triglycerides Cholesterol LDL Cholesterol, Calc HDL Cholesterol Cholesterol/HDL Ratio TSH Free T4 Urine Color Yellow Urine Clarity Hazy H Urine pH 6.0 Ur Specific [place] 1.004 Urine Protein Negative Urine Glucose (UA) Negative Urine Ketones Negative Urine Occult Blood Small H Urine Nitrate Negative Urine Bilirubin Negative Urine Urobilinogen Less than 2 Ur Leukocyte Esterase Large H Urine RBC 1 Urine WBC 18 H Ur Squamous Epith Cells <1 Urine Bacteria Few H Micro UA Comment Culture indicated Urine Culture Comments Culture indicated 02/16/18 02/16/18 02/16/18 12:40 17:35 21:28 WBC RBC Hgb Hct MCV MCH MCHC RDW Plt Count MPV Neut % (Auto) Lymph % (Auto) [place] % (Auto) Eos % (Auto) Baso % (Auto) Neut # (Auto) Lymph # (Auto) [place] # (Auto) Eos # (Auto) Baso # (Auto) WBC Differential Differential Comment PT INR Sodium 138 Potassium 4.1 Chloride 101 Carbon Dioxide 27.2 Anion Gap 10 BUN 15 Creatinine 0.81 Estimated GFR 68 L POC Glucose Random Glucose 216 H Calcium 9.0 Phosphorus Magnesium Total Bilirubin AST ALT Alkaline Phosphatase Total Creatine Kinase 68 115 Troponin I Less than 0.02 L Less than 0.02 L Less than 0.02 L Total Protein Albumin Triglycerides Cholesterol LDL Cholesterol, Calc HDL Cholesterol Cholesterol/HDL Ratio TSH Free T4 Urine Color Urine Clarity Urine pH Ur Specific [place] Urine Protein Urine Glucose (UA) Urine Ketones Urine Occult Blood Urine Nitrate Urine Bilirubin Urine Urobilinogen Ur Leukocyte Esterase Urine RBC Urine WBC Ur Squamous Epith Cells Urine Bacteria Micro UA Comment Urine Culture Comments 02/16/18 02/17/18 02/17/18 22:56 07:30 07:30 WBC 8.6 RBC 4.34 Hgb 12.5 Hct 37.3 MCV 85.9 MCH 28.8 MCHC 33.5 RDW 13.4 Plt Count 278 MPV 8.6 Neut % (Auto) 62.2 Lymph % (Auto) 27.6 [place] % (Auto) 6.5 Eos % (Auto) 2.8 Baso % (Auto) 0.9 Neut # (Auto) 5.3 Lymph # (Auto) 2.4 [place] # (Auto) 0.6 Eos # (Auto) 0.2 Baso # (Auto) 0.1 WBC Differential . Differential Comment Auto diff final PT INR Sodium 140 Potassium 3.9 Chloride 105 Carbon Dioxide 25.2 Anion Gap 10 BUN 14 Creatinine 0.74 Estimated GFR 75 L POC Glucose 299 H Random Glucose 196 H Calcium 8.4 L Phosphorus 3.3 Magnesium 2.0 Total Bilirubin 0.3 AST 19 ALT 26 Alkaline Phosphatase 106 Total Creatine Kinase Troponin I Total Protein 7.2 Albumin 3.4 Triglycerides 296 H Cholesterol 230 H LDL Cholesterol, Calc 129 H HDL Cholesterol 41.5 Cholesterol/HDL Ratio 5.54 TSH 5.030 H Free T4 1.12 Urine Color Urine Clarity Urine pH Ur Specific [place] Urine Protein Urine Glucose (UA) Urine Ketones Urine Occult Blood Urine Nitrate Urine Bilirubin Urine Urobilinogen Ur Leukocyte Esterase Urine RBC Urine WBC Ur Squamous Epith Cells Urine Bacteria Micro UA Comment Urine Culture Comments 02/17/18 08:57 WBC RBC Hgb Hct MCV MCH MCHC RDW Plt Count MPV Neut % (Auto) Lymph % (Auto) [place] % (Auto) Eos % (Auto) Baso % (Auto) Neut # (Auto) Lymph # (Auto) [place] # (Auto) Eos # (Auto) Baso # (Auto) WBC Differential Differential Comment PT INR Sodium Potassium Chloride Carbon Dioxide Anion Gap BUN Creatinine Estimated GFR POC Glucose 296 H Random Glucose Calcium Phosphorus Magnesium Total Bilirubin AST ALT Alkaline Phosphatase Total Creatine Kinase Troponin I Total Protein Albumin Triglycerides Cholesterol LDL Cholesterol, Calc HDL Cholesterol Cholesterol/HDL Ratio TSH Free T4 Urine Color Urine Clarity Urine pH Ur Specific [place] Urine Protein Urine Glucose (UA) Urine Ketones Urine Occult Blood Urine Nitrate Urine Bilirubin Urine Urobilinogen Ur Leukocyte Esterase Urine RBC Urine WBC Ur Squamous Epith Cells Urine Bacteria Micro UA Comment Urine Culture Comments - Imaging Impressions Head MRI 02/16/18 00:00 CONCLUSION: 1. Negative noncontrast MRI of the brain. Head MRA 02/16/18 00:00 CONCLUSION: 1. Negative MRA of the [place]. Head CT 02/16/18 12:34 CONCLUSION: No acute intracranial abnormality is identified. . Carotid Doppler Study 02/16/18 15:07 CONCLUSION: 1. Right Internal Carotid Artery: No significant stenosis or atherosclerotic plaque is visualized. 2. Left Internal Carotid Artery: No significant atherosclerotic disease or stenosis is identified. However, velocity measurement suggests between 50-69% stenosis. 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 MRA of the brain normal. Carotid ultrasound showing less than 60% stenosis likely not relevant to her symptoms Recommendations Vestibular therapy Blood pressure control PT eval We will change her from aspirin to Plavix at present Serial carotid imaging LDL goal less than 100 Discussed with the patient and her daughters Discussed with medical Disease DC planning follow-up in the outpatient setting (4) Urinary tract infection Qualifiers: Urinary tract infection type: site unspecified Hematuria presence: without hematuria Qualified Code(s): N39.0 - Urinary tract infection, site not specified
--- NOTE | 2018-02-17 11:35 | P.PN ---
Subjective Interval history: sitting up in chair, denies dizziness, no vision changes, alert and oriented x 3. No cp, no sob, no headaches. Daughter at [facility]. Anxious to go home. BP reviewed , has been elevated, up to 190s. Per daughter, doesn't eat very healthy, a lot of salty food Physical Exam Vital signs: Vital Signs 02/16/18 12:27 02/16/18 12:30 02/16/18 14:01 Temperature 98.8 F Pulse Rate 83 95 H 73 Respiratory Rate 17 17 17 Blood Pressure 221/86 H 186/81 H 202/83 H Pulse Oximetry 97 98 98 02/16/18 15:10 02/16/18 15:33 02/16/18 16:21 Temperature Pulse Rate 79 87 89 Respiratory Rate 17 17 Blood Pressure 182/81 H 183/74 H Pulse Oximetry 97 02/16/18 18:15 02/16/18 20:00 02/17/18 00:00 Temperature 97.7 F 97.7 F Pulse Rate 78 71 77 Respiratory Rate 17 18 18 Blood Pressure 175/79 H 182/76 H 124/57 L Pulse Oximetry 98 96 94 L 02/17/18 04:00 02/17/18 08:00 Temperature 97.6 F 98.2 F Pulse Rate 71 85 Respiratory Rate 18 16 Blood Pressure 171/79 H 193/84 H Pulse Oximetry 96 95 Intake & Output 02/16/18 02/17/18 02/17/18 18:59 06:59 18:59 Intake Total 120 / 120 Balance 120 / 120 Weight 74.843 kg 83.1 kg Intake: Oral 120 / 120 Other: # Incontinent Voids 5 Date of Last Bowel Movement 02/16/18 # Bowel Movements 0 Weight On Admission 81.1 kg Narrative: GENERAL: Well-nourished, well-developed patient in no apparent distress. SKIN: Warm and dry. HEAD: Atraumatic. Normocephalic. EYES: Pupils equal and round. No scleral icterus. No injection or drainage. ENT: No nasal bleeding or discharge. Mucous membranes pink and moist. NECK: Trachea midline. No JVD. CARDIOVASCULAR: Regular rate and rhythm. RESPIRATORY: No accessory muscle use. Clear to auscultation. Breath sounds equal bilaterally. GASTROINTESTINAL: Abdomen soft, non-tender, nondistended. Hepatic and splenic margins not palpable. MUSCULOSKELETAL: Extremities without clubbing, cyanosis, trace pretibial edema. Bilateral 2+ pedal pulses. No obvious deformities. NEUROLOGICAL: Awake and alert x3. No obvious cranial nerve deficits. Motor grossly within normal limits. Five out of 5 muscle strength in the arms and legs. Normal speech. PSYCHIATRIC: Appropriate mood and affect; insight and judgment normal. Results - Labs CBC & Chem 7: 02/17/18 07:30 02/17/18 07:30 Laboratory Results - last 24 hr 02/16/18 02/16/18 02/16/18 11:50 12:40 12:40 WBC 9.3 RBC 4.55 Hgb 13.1 Hct 38.7 MCV 85.0 MCH 28.8 MCHC 33.8 RDW 13.5 Plt Count 269 MPV 8.7 Neut % (Auto) 64.0 Lymph % (Auto) 27.0 [place] % (Auto) 6.3 Eos % (Auto) 2.0 Baso % (Auto) 0.7 Neut # (Auto) 5.9 Lymph # (Auto) 2.5 Trinity # (Auto) 0.6 Eos # (Auto) 0.2 Baso # (Auto) 0.1 WBC Differential . Differential Comment Auto diff final PT 10.8 INR 1.1 Sodium Potassium Chloride Carbon Dioxide Anion Gap BUN Creatinine Estimated GFR POC Glucose Random Glucose Calcium Phosphorus Magnesium Total Bilirubin AST ALT Alkaline Phosphatase Total Creatine Kinase Troponin I Total Protein Albumin Triglycerides Cholesterol LDL Cholesterol, Calc HDL Cholesterol Cholesterol/HDL Ratio TSH Free T4 Urine Color Yellow Urine Clarity Hazy H Urine pH 6.0 Ur Specific [place] 1.004 Urine Protein Negative Urine Glucose (UA) Negative Urine Ketones Negative Urine Occult Blood Small H Urine Nitrate Negative Urine Bilirubin Negative Urine Urobilinogen Less than 2 Ur Leukocyte Esterase Large H Urine RBC 1 Urine WBC 18 H Ur Squamous Epith Cells <1 Urine Bacteria Few H Micro UA Comment Culture indicated Urine Culture Comments Culture indicated 02/16/18 02/16/18 02/16/18 12:40 17:35 21:28 WBC RBC Hgb Hct MCV MCH MCHC RDW Plt Count MPV Neut % (Auto) Lymph % (Auto) Trinity % (Auto) Eos % (Auto) Baso % (Auto) Neut # (Auto) Lymph # (Auto) [place] # (Auto) Eos # (Auto) Baso # (Auto) WBC Differential Differential Comment PT INR Sodium 138 Potassium 4.1 Chloride 101 Carbon Dioxide 27.2 Anion Gap 10 BUN 15 Creatinine 0.81 Estimated GFR 68 L POC Glucose Random Glucose 216 H Calcium 9.0 Phosphorus Magnesium Total Bilirubin AST ALT Alkaline Phosphatase Total Creatine Kinase 68 115 Troponin I Less than 0.02 L Less than 0.02 L Less than 0.02 L Total Protein Albumin Triglycerides Cholesterol LDL Cholesterol, Calc HDL Cholesterol Cholesterol/HDL Ratio TSH Free T4 Urine Color Urine Clarity Urine pH Ur Specific [place] Urine Protein Urine Glucose (UA) Urine Ketones Urine Occult Blood Urine Nitrate Urine Bilirubin Urine Urobilinogen Ur Leukocyte Esterase Urine RBC Urine WBC Ur Squamous Epith Cells Urine Bacteria Micro UA Comment Urine Culture Comments 02/16/18 02/17/18 02/17/18 22:56 07:30 07:30 WBC 8.6 RBC 4.34 Hgb 12.5 Hct 37.3 MCV 85.9 MCH 28.8 MCHC 33.5 RDW 13.4 Plt Count 278 MPV 8.6 Neut % (Auto) 62.2 Lymph % (Auto) 27.6 Trinity % (Auto) 6.5 Eos % (Auto) 2.8 Baso % (Auto) 0.9 Neut # (Auto) 5.3 Lymph # (Auto) 2.4 Trinity # (Auto) 0.6 Eos # (Auto) 0.2 Baso # (Auto) 0.1 WBC Differential . Differential Comment Auto diff final PT INR Sodium 140 Potassium 3.9 Chloride 105 Carbon Dioxide 25.2 Anion Gap 10 BUN 14 Creatinine 0.74 Estimated GFR 75 L POC Glucose 299 H Random Glucose 196 H Calcium 8.4 L Phosphorus 3.3 Magnesium 2.0 Total Bilirubin 0.3 AST 19 ALT 26 Alkaline Phosphatase 106 Total Creatine Kinase Troponin I Total Protein 7.2 Albumin 3.4 Triglycerides 296 H Cholesterol 230 H LDL Cholesterol, Calc 129 H HDL Cholesterol 41.5 Cholesterol/HDL Ratio 5.54 TSH 5.030 H Free T4 1.12 Urine Color Urine Clarity Urine pH Ur Specific [place] Urine Protein Urine Glucose (UA) Urine Ketones Urine Occult Blood Urine Nitrate Urine Bilirubin Urine Urobilinogen Ur Leukocyte Esterase Urine RBC Urine WBC Ur Squamous Epith Cells Urine Bacteria Micro UA Comment Urine Culture Comments 02/17/18 08:57 WBC RBC Hgb Hct MCV MCH MCHC RDW Plt Count MPV Neut % (Auto) Lymph % (Auto) Trinity % (Auto) Eos % (Auto) Baso % (Auto) Neut # (Auto) Lymph # (Auto) Trinity # (Auto) Eos # (Auto) Baso # (Auto) WBC Differential Differential Comment PT INR Sodium Potassium Chloride Carbon Dioxide Anion Gap BUN Creatinine Estimated GFR POC Glucose 296 H Random Glucose Calcium Phosphorus Magnesium Total Bilirubin AST ALT Alkaline Phosphatase Total Creatine Kinase Troponin I Total Protein Albumin Triglycerides Cholesterol LDL Cholesterol, Calc HDL Cholesterol Cholesterol/HDL Ratio TSH Free T4 Urine Color Urine Clarity Urine pH Ur Specific [place] Urine Protein Urine Glucose (UA) Urine Ketones Urine Occult Blood Urine Nitrate Urine Bilirubin Urine Urobilinogen Ur Leukocyte Esterase Urine RBC Urine WBC Ur Squamous Epith Cells Urine Bacteria Micro UA Comment Urine Culture Comments - Imaging Impressions Head MRI 02/16/18 00:00 CONCLUSION: 1. Negative noncontrast MRI of the brain. Head MRA 02/16/18 00:00 CONCLUSION: 1. Negative MRA of the [place] of [place]. Head CT 02/16/18 12:34 CONCLUSION: No acute intracranial abnormality is identified. . Carotid Doppler Study 02/16/18 15:07 CONCLUSION: 1. Right Internal Carotid Artery: No significant stenosis or atherosclerotic plaque is visualized. 2. Left Internal Carotid Artery: No significant atherosclerotic disease or stenosis is identified. However, velocity measurement suggests between 50-69% stenosis. 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 Sudden onset of blurry/double vision and gait instability. No evidence of stroke, BP uncontrolled. Poss. vertigo Symptoms improved today but BP remains poorly controlled -neurology input appreciated. Likely vertigo, recommends vestibular therapy and f/u as OP -Neuro checks -Monitor on cardiac telemetry -Serial cardiac enzymes -Obtain 2D echocardiogram-pending -MRI and MRI of the brain done, no acute findings -Carotid Doppler no significant stenosis -ASA daily -continue statin -lipid profile results noted, -hemoglobin A1c pending -PT/OT eval/tx Hypertensive urgency, likely contributing to above BP 221/86 -continue Hydralazine, increase to 75 milligrams p.o. TID -continue Cozaar 100 mg po daily -clonidine prn with parameters -Increase Norvasc to 10 mg p.o. daily UTI -Patient given IV ceftriaxone in the ED, continue -Follow-up on urine culture results, so far negative. Diabetes Blood sugars poorly controlled. -Obtain hemoglobin [id number] -Accu-Cheks and insulin sliding scale -Hold home antidiabetic medications for now Hypothyroidism -TSH level noted -continue levothyroxine DVT prophylaxis -Heparin sq Code Status: FULL Blood pressure not optimally controlled, will wait for echocardiogram. Discussed with patient and daughter the need for better management of diabetes at home. Discussed diet, portion control, avoiding salty foods, increasing activity. If blood pressure better control later this afternoon, possible discharge. (2) Obesity Qualifiers: Obesity type: unspecified obesity type Obesity classification: adult class 1 (BMI 30 - 34.9) Serious obesity comorbidity presence: without serious comorbidity Body mass index: BMI 33.0-33.9 Qualified Code(s): E66.9 - Obesity , unspecified; Z68.33 - Body mass index (BMI) 33.0-33.9, adult (4) Urinary tract infection Qualifiers: Urinary tract infection type: site unspecified Hematuria presence: without hematuria Qualified Code(s): N39.0 - Urinary tract infection, site not specified
[2018-02-17] MEDS: hydrALAZINE 25 MG Tablet PO SCH ×2 (13:26→17:50)
[2018-02-17 16:07] LABS: Hemoglobin A1c 8.9 % (4.3-6.0)
--- NOTE | 2018-02-17 19:03 | ECHRPT ---
Indication: HYPERTENSIVE HEART DISEASE CONCLUSIONS The left ventricular systolic function is normal with an estimated ejection fraction in the range of 55-60%. Trace mitral valve regurgitation. There is trace tricuspid valve regurgitation. There is a trace pericardial effusion present. No hemodynamically significant echocardiographic features were observed (no pre-tamponade physiology). BP: / HR: Rhythm: Sinus MEASUREMENTS (Male / Female) Normal Values Technical Quality:Fair 2D ECHO LV Diastolic Diameter PLAX 4.8 cm 4.2 - 5.9 / 3.9 - 5.3 cm LV Systolic Diameter PLAX 3.5 cm IVS Diastolic Thickness 1.1 cm 0.6 - 1.0 / 0.6 - 0.9 cm LVPW Diastolic Thickness 1.0 cm 0.6 - 1.0 / 0.6 - 0.9 cm LV Relative Wall Thickness 0.5 LVOT Diameter 1.9 cm LA Systolic Diameter LX 3.2 cm 3.0 - 4.0 / 2.7 - 3.8 cm DOPPLER AV Peak Velocity 190.0 cm/s AV Peak Gradient 14.4 mmHg LVOT Peak Velocity 130.0 cm/s LVOT Peak Gradient 6.8 mmHg AV Area Cont Eq pk 1.9 cm Mitral E Point Velocity 80.2 cm/s Mitral A Point Velocity 100.0 cm/s Mitral E to A Ratio 0.8 LV E' Lateral Velocity 5.4 cm/s Mitral E to LV E' Lateral Ratio 15.0 LV E' Septal Velocity 10.6 cm/s Mitral E to LV E' Septal Ratio 7.6 PV Peak Velocity 63.7 cm/s PV Peak Gradient 1.6 mmHg FINDINGS LEFT VENTRICLE Normal left ventricular size. Wall thickness is measured at the upper limits of normal. The left ventricular systolic function is normal with an estimated ejection fraction in the range of 55-60%. RIGHT VENTRICLE Normal right ventricular size and systolic function. LEFT ATRIUM The left atrial size is normal. RIGHT ATRIUM The right atrial size is normal. ATRIAL SEPTUM No atrial level shunt is demonstrated by color flow Doppler interrogation. AORTA The aortic root and proximal ascending aorta are normal in size on limited imaging. MITRAL VALVE Structurally normal mitral valve. No mitral valve stenosis. Trace mitral valve regurgitation. AORTIC VALVE Trileaflet aortic valve. No aortic valve stenosis or regurgitation. TRICUSPID VALVE Structurally normal tricuspid valve. There is trace tricuspid valve regurgitation. PULMONARY VALVE Mild pulmonary valve regurgitation. VESSELS The inferior vena cava was not well visualized. PERICARDIUM There is a trace pericardial effusion present. No hemodynamically significant echocardiographic features were observed (no pre-tamponade physiology). Sundar Hickey DO (Electronically Signed) Final Date:17 February 2018 19:03
--- NOTE | 2018-02-17 19:55 | ECG ---
Date Performed: 02/16/2018 Time Performed: 12:37:42 PTAGE: 83 years EKG: Sinus rhythm POSSIBLE ANTERIOR MYOCARDIAL INFARCTION INFERIOR MYOCARDIAL INFARCTION ABNORMAL ECG INTERPRETATION B ASED ON A DEFAULT AGE OF 40 YEARS PREVIOUS TRACING : 05/29/2009 13.00 Since the previous tracing, no significant change not ed DOCTOR: Sid Barreto Interpretating Date/Time 02/17/2018 19:52:23
--- NOTE | 2018-02-17 19:55 | ECG ---
Date Performed: 02/16/2018 Time Performed: 21:46:48 PTAGE: 83 years EKG: Sinus rhythm WITH SINUS ARRHYTHMIA POSSIBLE INFERIOR MYOCARDIAL INFARCTION , PROBABLY OLD BORDERLINE ECG PREVIOUS TRACING : 02/16/2018 12.37 Since the previous tracing, no significant change noted DOCTOR: Sid Barreto Interpretating Date/Time 02/17/2018 19:52:31
[2018-02-18] MEDS: Levothyroxine 150 MCG Tablet PO SCH (05:12)
[2018-02-18] MEDS: Heparin - SQ 10,000 UNITS/ML Vial SQ SCH (05:15)
--- NOTE | 2018-02-18 08:25 | P.PNNEU ---
Subjective Subjective Comments: Slept well feels very well this morning denies any dizziness double vision or any weakness ready to go home Active Medications: Active Medications Acetaminophen (Tylenol) 650 mg PO Q4H PRN PRN Reason: Temp > 100.4 Al Hydroxide/Mg Hydroxide (Milk Of Magnesia Liq) 30 ml PO Q12H PRN PRN Reason: Mild Constipation Amlodipine Besylate (Norvasc) 10 mg PO DAILY [facility] Aspirin (Aspirin Chew) 81 mg PO DAILY [facility] Last Admin: 02/17/18 09:34 Dose: 81 mg Bisacodyl (Dulcolax Supp) 10 mg RECTAL DAILY PRN PRN Reason: SEVERE CONSITIPATION Clonidine HCl (Catapres) 0.1 mg PO Q6H PRN PRN Reason: HYPERTENSION Last Admin: 02/18/18 05:12 Dose: 0.1 mg Clopidogrel Bisulfate (Plavix) 75 mg PO DAILY [facility] Last Admin: 02/17/18 18:13 Dose: 75 mg Dextrose (D50w Vial) 50 ml IV.PUSH UNSCH PRN PRN Reason: per Hypoglycemic Protocol Diphenhydramine HCl (Benadryl Inj) 25 mg IV.PUSH Q6H PRN PRN Reason: RASH Last Admin: 02/17/18 14:59 Dose: 25 mg Glucagon (Glucagon Inj) 1 mg OTHER UNSCH PRN PRN Reason: per Hypoglycemic Protocol Heparin Sodium (Porcine) (Heparin Inj) 5,000 units SQ Q12H [facility] Last Admin: 02/18/18 05:15 Dose: 5,000 units Hydralazine HCl (Apresoline) 75 mg PO TID [facility] Last Admin: 02/17/18 17:50 Dose: 75 mg Insulin Aspart (Novolog Insulin Correctional Sugar Inj) 0 unit SQ [facility]; Protocol Last Admin: 02/17/18 20:25 Dose: 5 unit Lactulose (Lactulose Liq) 30 ml PO DAILY PRN PRN Reason: SEVERE CONSITIPATION Levothyroxine Sodium (Synthroid) 150 mcg PO DAILY@0600 [facility] Last Admin: 02/18/18 05:12 Dose: 150 mcg Losartan Potassium (Cozaar) 100 mg PO DAILY [facility] Last Admin: 02/17/18 09:34 Dose: 100 mg Ondansetron HCl (Zofran Inj) 4 mg IV.PUSH Q6H PRN PRN Reason: NAUSEA OR VOMITING Pantoprazole Sodium (Protonix) 20 mg PO DAILY [facility] Last Admin: 02/17/18 09:34 Dose: 20 mg Pravastatin Sodium (Pravachol) 40 mg PO HS [facility] Last Admin: 02/17/18 20:20 Dose: Not Given Senna/Docusate Sodium (Luciana-Colace) 1 tab PO BID [facility] Last Admin: 02/17/18 20:20 Dose: Not Given Sennosides (Senokot) 17.2 mg PO Q12H PRN PRN Reason: Moderate Constipation Sodium Chloride (Ns Flush) 2 ml IV.FLUSH PRN PRN PRN Reason: FLUSH AFTER USING IV ACCESS Allergies/Adverse Reactions: Allergies Allergy/AdvReac Type Severity Reaction Status Date / Time egg AdvReac Intermediate ABLE TO Unverified 02/11/17 15:16 EAT EGG BEATERS-REG EGGS CAUSE NAUSEA No Known Allergies Uncoded 03/04/10 11:57 Review of Systems All other systems reviewed negative except as stated in HPI Physical Exam Vital signs: Vital Signs 02/17/18 12:00 02/17/18 14:46 02/17/18 15:10 Temperature 98.1 F 97.2 F L Pulse Rate 83 104 H 104 H Respiratory Rate 18 18 20 Blood Pressure 176/88 H 132/64 132/64 Pulse Oximetry 96 97 02/17/18 20:00 02/17/18 20:16 02/18/18 00:00 Temperature 98.2 F Pulse Rate 96 H 91 H 82 Respiratory Rate 18 Blood Pressure 149/76 H Pulse Oximetry 96 02/18/18 01:00 02/18/18 04:00 Temperature 98.0 F 98.2 F Pulse Rate 92 H 88 Respiratory Rate 18 18 Blood Pressure 150/67 H 191/89 H Pulse Oximetry 95 94 L Intake & Output 02/17/18 02/18/18 02/18/18 18:59 06:59 18:59 Intake Total 700 / 700 0 / 0 Output Total 1200 / 1200 0 / 0 Balance -500 / -500 0 / 0 Intake: IV 100 / 100 Rocephin Inj 1,000 MG In NS Inj 100 / 100 100 ML @ 200 mls/hr IV.SIG Q24H [facility] Rx#:[id number] Oral 600 / 600 0 / 0 Output: Urine 1200 / 1200 0 / 0 Other: Date of Last Bowel Movement 02/17/18 # Bowel Movements 1 Narrative: GENERAL: Well-nourished, well-developed patient in no apparent distress. SKIN: Warm and dry. HEAD: Atraumatic. Normocephalic. EYES: Pupils equal and round. No scleral icterus. No injection or drainage. ENT: No nasal bleeding or discharge. NECK: Trachea midline. No JVD. CARDIOVASCULAR: Regular rate and rhythm. RESPIRATORY: No accessory muscle use. Clear to auscultation. GASTROINTESTINAL: Abdomen soft, non-tender, MUSCULOSKELETAL: Extremities without clubbing, cyanosis, trace pretibial edema. Bilateral 2+ pedal pulses. No obvious deformities. NEUROLOGICAL: Awake and alert x3. Pleasant calm, no aphasia, clear speech no obvious cranial nerve deficits. Reduced range of motion at the neck motor grossly within normal limits. Five out of 5 muscle strength in the arms and legs. PSYCHIATRIC: Appropriate mood and affect; insight and judgment normal. - Constitutional no acute distress - Routine HEENT Exam Head: Present: normocephalic Eye: Present: EOMI Objective Laboratory Results - last 24 hr 02/16/18 02/17/18 02/17/18 11:50 07:30 08:57 POC Glucose 296 H Hemoglobin A1c 8.9 H Urine Color Yellow Urine Clarity Hazy H Urine pH 6.0 Ur Specific [place] 1.004 Urine Protein Negative Urine Glucose (UA) Negative Urine Ketones Negative Urine Occult Blood Small H Urine Nitrate Negative Urine Bilirubin Negative Urine Urobilinogen Less than 2 Ur Leukocyte Esterase Large H Urine RBC 1 Urine WBC 18 H Ur Squamous Epith Cells <1 Urine Bacteria Few H Micro UA Comment Culture indicated Urine Culture Comments Culture indicated 02/17/18 02/17/18 02/17/18 12:38 17:53 20:14 POC Glucose 178 H 208 H 297 H Hemoglobin A1c Urine Color Urine Clarity Urine pH Ur Specific [place] Urine Protein Urine Glucose (UA) Urine Ketones Urine Occult Blood Urine Nitrate Urine Bilirubin Urine Urobilinogen Ur Leukocyte Esterase Urine RBC Urine WBC Ur Squamous Epith Cells Urine Bacteria Micro UA Comment Urine Culture Comments 02/18/18 02/18/18 01:23 07:44 POC Glucose 219 H 215 H Hemoglobin A1c Urine Color Urine Clarity Urine pH Ur Specific [place] Urine Protein Urine Glucose (UA) Urine Ketones Urine Occult Blood Urine Nitrate Urine Bilirubin Urine Urobilinogen Ur Leukocyte Esterase Urine RBC Urine WBC Ur Squamous Epith Cells Urine Bacteria Micro UA Comment Urine Culture Comments Microbiology 02/16/18 11:50 Urine Culture - Final Clean Catch Urine Escherichia coli Review/Management - Diagnosis (1) Vertigo Code(s): R42 - Dizziness and giddiness Status: Acute Current Visit: Yes (2) BPV (benign positional vertigo) Code(s): H81.10 - Benign paroxysmal vertigo, unspecified ear Status: Acute Current Visit: Yes (3) Hypertensive urgency Code(s): I16.0 - Hypertensive urgency Status: Acute Current Visit: Yes (4) Urinary tract infection Code(s): N39.0 - Urinary tract infection, site not specified Status: Acute Current Visit: Yes - Review/Management Plan: 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 Hypertension, insomnia stress and UTI may be aggravating her symptoms MRI brain no acute lesion. MRA of the brain normal. Carotid ultrasound showing less than 60% stenosis likely not relevant to her symptoms Recommendations Neurologically improved. Vestibular therapy Blood pressure control PT eval Change to Plavix Serial carotid imaging LDL goal less than 100 Disease DC planning follow-up in the outpatient setting space this with her spouse (4) Urinary tract infection Qualifiers: Urinary tract infection type: site unspecified Hematuria presence: without hematuria Qualified Code(s): N39.0 - Urinary tract infection, site not specified
[2018-02-18] MEDS ORDERED: amLODIPine 10 MG Tablet PO SCH (09:00)
[2018-02-18] MEDS: Insulin NovoLOG Aspart Correctional Sugar Inj SQ SCH ×2 (09:26→13:22)
[2018-02-18] MEDS: Senna/Docusate Sodium 8.6/50 MG Tablet PO SCH (09:26)
[2018-02-18] MEDS: Pantoprazole Sodium 20 MG DR Tablet PO SCH (09:26)
[2018-02-18] MEDS: hydrALAZINE 25 MG Tablet PO SCH ×2 (09:26→13:10)
[2018-02-18] MEDS ORDERED: Ciprofloxacin 250 MG Tablet PO SCH (09:30)
--- NOTE | 2018-02-18 12:05 | P.PN ---
Subjective Interval history: No dizziness, no headache, no paresthesias, no chest pain, shortness of breath. Blood pressure better controlled, to 150s. Denies any fever. Feels much better, anxious to go home. Had an allergic reaction to Rocephin possibly tomatoes yesterday, had a rash around her lips. No stridor, no difficulty breathing. No other rashes. Rash resolved now. Daughter at [facility] Physical Exam Vital signs: Vital Signs 02/17/18 12:00 02/17/18 14:46 02/17/18 15:10 Temperature 98.1 F 97.2 F L Pulse Rate 83 104 H 104 H Respiratory Rate 18 18 20 Blood Pressure 176/88 H 132/64 132/64 Pulse Oximetry 96 97 02/17/18 20:00 02/17/18 20:16 02/18/18 00:00 Temperature 98.2 F Pulse Rate 96 H 91 H 82 Respiratory Rate 18 Blood Pressure 149/76 H Pulse Oximetry 96 02/18/18 01:00 02/18/18 04:00 02/18/18 08:00 Temperature 98.0 F 98.2 F 98.0 F Pulse Rate 92 H 88 82 Respiratory Rate 18 18 20 Blood Pressure 150/67 H 191/89 H 166/74 H Pulse Oximetry 95 94 L 96 02/18/18 11:14 Temperature 98.5 F Pulse Rate 86 Respiratory Rate 18 Blood Pressure 142/65 H Pulse Oximetry Intake & Output 02/17/18 02/18/18 02/18/18 18:59 06:59 18:59 Intake Total 700 / 700 0 / 0 Output Total 1200 / 1200 0 / 0 Balance -500 / -500 0 / 0 Intake: IV 100 / 100 Rocephin Inj 1,000 MG In NS Inj 100 / 100 100 ML @ 200 mls/hr IV.SIG Q24H [facility] Rx#:[id number] Oral 600 / 600 0 / 0 Output: Urine 1200 / 1200 0 / 0 Other: Date of Last Bowel Movement 02/17/18 # Bowel Movements 1 Narrative: GENERAL: Well-nourished, well-developed patient in no apparent distress. SKIN: Warm and dry. HEAD: Atraumatic. Normocephalic. EYES: Pupils equal and round. No scleral icterus. No injection or drainage. ENT: No nasal bleeding or discharge. NECK: Trachea midline. No JVD. CARDIOVASCULAR: Regular rate and rhythm. RESPIRATORY: No accessory muscle use. Clear to auscultation. GASTROINTESTINAL: Abdomen soft, non-tender, MUSCULOSKELETAL: Extremities without clubbing, cyanosis, trace pretibial edema. Bilateral 2+ pedal pulses. No obvious deformities. NEUROLOGICAL: Awake and alert x3. Pleasant calm, no aphasia, clear speech no obvious cranial nerve deficits. Reduced range of motion at the neck motor grossly within normal limits. Five out of 5 muscle strength in the arms and legs. PSYCHIATRIC: Appropriate mood and affect; insight and judgment normal. Results - Labs CBC & Chem 7: 02/17/18 07:30 02/17/18 07:30 Laboratory Results - last 24 hr 02/16/18 02/17/18 02/17/18 11:50 07:30 12:38 POC Glucose 178 H Hemoglobin A1c 8.9 H Urine Color Yellow Urine Clarity Hazy H Urine pH 6.0 Ur Specific Swan 1.004 Urine Protein Negative Urine Glucose (UA) Negative Urine Ketones Negative Urine Occult Blood Small H Urine Nitrate Negative Urine Bilirubin Negative Urine Urobilinogen Less than 2 Ur Leukocyte Esterase Large H Urine RBC 1 Urine WBC 18 H Ur Squamous Epith Cells <1 Urine Bacteria Few H Micro UA Comment Culture indicated Urine Culture Comments Culture indicated 02/17/18 02/17/18 02/18/18 17:53 20:14 01:23 POC Glucose 208 H 297 H 219 H Hemoglobin A1c Urine Color Urine Clarity Urine pH Ur Specific Swan Urine Protein Urine Glucose (UA) Urine Ketones Urine Occult Blood Urine Nitrate Urine Bilirubin Urine Urobilinogen Ur Leukocyte Esterase Urine RBC Urine WBC Ur Squamous Epith Cells Urine Bacteria Micro UA Comment Urine Culture Comments 02/18/18 07:44 POC Glucose 215 H Hemoglobin A1c Urine Color Urine Clarity Urine pH Ur Specific Swan Urine Protein Urine Glucose (UA) Urine Ketones Urine Occult Blood Urine Nitrate Urine Bilirubin Urine Urobilinogen Ur Leukocyte Esterase Urine RBC Urine WBC Ur Squamous Epith Cells Urine Bacteria Micro UA Comment Urine Culture Comments Microbiology 02/16/18 11:50 Clean Catch Urine Urine Culture - Final Escherichia coli Assessment and Plan - Plan 83-year-old female with a past medical history significant for hypertension, hypothyroidism and diabetes who presents to [facility] ED with complaints of sudden onset of "dizziness" which patient describes as double/blurry vision. Sudden onset of blurry/double vision and gait instability. No evidence of stroke, BP uncontrolled. Poss. vertigo Symptoms improved today but BP remains poorly controlled -neurology input appreciated. Likely vertigo, recommends vestibular therapy and f/u as OP -Neuro checks -Monitor on cardiac telemetry -Serial cardiac enzymes -2D echocardiogram-EF 55-60%, trace MR and TR. -MRI and MRI of the brain done, no acute findings -Carotid Doppler no significant stenosis -ASA daily -continue statin -lipid profile results noted, -hemoglobin A1c 8.9 -PT/OT eval/tx -Can do vestibular therapy as outpatient. Clear for discharge by neurology, can follow-up with Dr. Russell, has appointment for . Hypertensive urgency, likely contributing to above BP much better on current regimen still not optimal -continue Hydralazine, increase to 75 milligrams p.o. TID -continue Cozaar 100 mg po daily -clonidine prn with parameters -Increase Norvasc to 10 mg p.o. daily Allergic reaction to Rocephin, poss tomatoes on 02/17. Has perioral rash, no stridor. VSS -Benadryl PRN -allergies added to profile. -symptoms resolved. UTI -Patient given IV ceftriaxone in the ED, continue. Stopped due to rash reaction -UC Ecoli, sens noted, will start Cipro 250 mg PO BID, will give first dose here and see how she responds. Diabetes Blood sugars poorly controlled. - hemoglobin A1c-8.9 -Accu-Cheks and insulin sliding scale -D/W pt and daughter, needs better glucose control. Met with breaker oiler yesterday. Hypothyroidism -TSH level noted -continue levothyroxine DVT prophylaxis -Heparin sq Patient stable, tolerated Cipro well. Blood pressure better controlled. No longer having dizziness Patient clear for discharge Discharge home with home healthcare today Follow-up with Dr. Russell on Continue with diabetic diet Activity as tolerated
--- NOTE | 2018-02-18 15:53 | P.DCO ---
- Home Health Nursing Order: Medical education, Signs/symptoms of disease process, Diabetic education , Nursing assessment with vital signs - Case Management Consult Yes - Certification I have seen patient Erum Torres on 02/18/18. My clinical findings support the need for the requested home health care services because: dizziness , vertigo, multiple medications to treat uncontrolled bp Need for psychosocial assistance I certify that my clinical findings support that this patient is homebound because: Unsafe to leave home unassisted, Need for psychosocial assistance
--- NOTE | 2018-02-18 17:51 | P.DS ---
Date of admission: 02/16/18 15:01 Primary care physician: Josh Ardon MD Attending physician on discharge: Osmar Burnham Anticipated date of discharge: 02/18/18 Brief History from admission: This is an 83-year-old female with a past medical history significant for hypertension, hypothyroidism and diabetes who presents to [facility] ED with complaints of sudden onset of "dizziness" which patient describes as double /blurry vision. Patient states she has episodes of "vertigo" which she gets 2 times a year and reports that today's symptoms were similar. Patient states that she woke up in her normal state of health this morning but later in the day when she got in the car to drive she experienced a sudden onset of blurry vision. When she got out the car to let her daughter drive, she had difficulty walking. She denies any associated headache, palpitations, nausea, vomiting, chest pain, shortness of breath or abdominal pain. Daughter who was with her at the time states that the her left eyelid was droopy. She denies any slurred speech, difficulties with word finding or associated weakness. She does state that she had some numbness in the left arm but reports that she gets this from time to time with certain positioning of her arm or head and has a history of cervical stenosis. Patient took one of her meclizine but did not get any benefit. Her daughter was also concerned that maybe she was having hypoglycemic episode and gave her a small Snickers which also did not help. In the ED, her BP was dated 221/86. CT of the head was obtained which showed no acute intracranial abnormality. The white count was within normal limits and hemoglobin hematocrit were normal. Chemistry panel reveals sodium 138, potassium 4.1, creatinine 0.81, glucose 216. She had a troponin level 0.02. EKG revealed normal sinus rhythm and no acute ST changes. UA was not indicative of UTI with large leukocytes, 18 white blood cells and few bacteria and she was given a dose of Ceftriaxone in the ED. DS: Diagnosis - Discharge Diagnosis (1) Hypertensive urgency Status: Acute (2) Urinary tract infection Status: Acute (3) Vertigo Status: Acute (4) Diabetes 1.5, managed as type 2 Status: Chronic (5) Obesity Status: Chronic DS: Medications - Discharge Medications Prescriptions: amlodipine [Norvasc] 10 mg PO DAILY 30 Days #30 tab ciprofloxacin HCl 250 mg PO Q12HR #5 tab clopidogrel [Plavix] 75 mg PO DAILY 30 Days #30 tab hydralazine 75 mg PO TID 30 Days #90 tab pravastatin 40 mg PO HS 30 Days #30 tab DS: Summary Hospital Course: 83-year-old female with a past medical history significant for hypertension, hypothyroidism and diabetes who presents to [facility] ED with complaints of sudden onset of "dizziness" which patient describes as double/blurry vision. Pt admitted for Sudden onset of blurry/double vision and gait instability. No evidence of stroke, BP uncontrolled. Poss. vertigo Symptoms improved but BP remained poorly controlled -neurology input appreciated. Likely vertigo, recommended vestibular therapy and f/u as OP -ordered Neuro checks -Monitored on cardiac telemetry -Serial cardiac enzymes done, negative -2D echocardiogram-EF 55-60%, trace MR and TR. -MRI and MRI of the brain done, no acute findings -Carotid Doppler no significant stenosis -started on ASA, neurology added Plavix -continued statin -lipid profile results noted, poorly controlled. -hemoglobin A1c 8.9 -PT/OT eval/tx -Can do vestibular therapy as outpatient. Cleared for discharge by neurology, can follow-up with Dr. Russell, has appointment for . Hypertensive urgency, likely contributing to above BP improved, but not optimal. -started on Hydralazine, increase to 75 milligrams p.o. TID -continued Cozaar 100 mg po daily -clonidine prn with parameters ordered -Increased Norvasc to 10 mg p.o. daily Allergic reaction to Rocephin, poss tomatoes on 02/17. Has perioral rash, no stridor. VSS Symptoms recurred prior to dc after she ate lunch. Poss. secondary to food allergy -Benadryl PRN -allergies added to profile. UTI, ecolik -Patient given IV ceftriaxone in the ED, continue. Stopped due to poss rash reaction -UC Ecoli, sens noted, started on Cipro 250 mg PO BID, tolerated well. Diabetes Blood sugars poorly controlled. - hemoglobin A1c-8.9 -Accu-Cheks and insulin sliding scale -consulted nurses educator, met with pt and family. -D/W pt and daughter, needs better glucose control. Hypothyroidism -TSH level noted -continue levothyroxine DVT prophylaxis -Heparin sq ordered Patient improved, no dizziness, no double vision. Ambulated well. BP improved. Patient cleared for discharge Discharged home with home healthcare Follow-up with Dr. Russell on Continue with diabetic diet Activity as tolerated - Time Spent with Patient Total time spent providing and/or coordinating discharge services: Greater than 30 minutes Exam Vital signs: Vital Signs 02/17/18 20:00 02/17/18 20:16 02/18/18 00:00 Temperature 98.2 F Pulse Rate 96 H 91 H 82 Respiratory Rate 18 Blood Pressure 149/76 H Pulse Oximetry 96 02/18/18 01:00 02/18/18 04:00 02/18/18 08:00 Temperature 98.0 F 98.2 F 98.0 F Pulse Rate 92 H 88 82 Respiratory Rate 18 18 20 Blood Pressure 150/67 H 191/89 H 166/74 H Pulse Oximetry 95 94 L 96 02/18/18 11:14 02/18/18 12:00 02/18/18 14:03 Temperature 98.5 F 98.2 F 98.2 F Pulse Rate 86 82 100 H Respiratory Rate 18 20 18 Blood Pressure 142/65 H 160/70 H 136/61 Pulse Oximetry 97 96 Intake & Output 02/17/18 02/18/18 02/18/18 18:59 06:59 18:59 Intake Total 700 / 700 0 / 0 Output Total 1200 / 1200 0 / 0 Balance -500 / -500 0 / 0 Intake: IV 100 / 100 Rocephin Inj 1,000 MG In NS Inj 100 / 100 100 ML @ 200 mls/hr IV.SIG Q24H [facility] Rx#:[id number] Oral 600 / 600 0 / 0 Output: Urine 1200 / 1200 0 / 0 Other: Date of Last Bowel Movement 02/17/18 # Bowel Movements 1 Results Procedures completed during hospitalization: none Labs on day of discharge: Labs from last 24 hours 02/18/18 02/18/18 02/18/18 13:13 07:44 01:23 POC Glucose 296 H 215 H 219 H 02/17/18 02/17/18 20:14 17:53 POC Glucose 297 H 208 H - Impressions ITS Impressions Head MRI 02/16/18 00:00 CONCLUSION: 1. Negative noncontrast MRI of the brain. Head MRA 02/16/18 00:00 CONCLUSION: 1. Negative MRA of the [place]. Head CT 02/16/18 12:34 CONCLUSION: No acute intracranial abnormality is identified. . Carotid Doppler Study 02/16/18 15:07 CONCLUSION: 1. Right Internal Carotid Artery: No significant stenosis or atherosclerotic plaque is visualized. 2. Left Internal Carotid Artery: No significant atherosclerotic disease or stenosis is identified. However, velocity measurement suggests between 50-69% stenosis. Discharge Plan - Discharge Disposition Patient Disposition: /Home Health Service - Discharge Condition Condition: Stable - Discharge Order Discharge Orders: Discharge Order (Routine); Ordered 02/18/18 Ordered By: Seda Field - Discharge Details Anticipated Discharge Date: 02/18/18 - Physicians Team Primary Care Provider: Josh Ardon Attending Provider: Osmar Burnham Other Providers: Rio Russell MD
== END 2018-02-18 15:40 | disposition home health service (06) ==
LOC: NEPC 12:21 → NEDA 15:01 → N04 19:00
PROVIDERS: ADMIT Internal Medicine; ATTEND Internal Medicine